=== PATIENT | female | born 1970 | race Hispanic/Latino ===

== ENCOUNTER 2018-03-19 17:57 | Emergency (ER) | payer OTHER ==
[~2018-03-19] VITALS: Ht 162.6 cm; Wt 81.3 kg
[2018-03-19] MEDS ORDERED: ULTRACET1 TABLET PO (22:43)
[2018-03-19 22:58] VITALS: BP 117/81
== END 2018-03-19 22:59 | disposition home or self-care (01) ==
LOC: EME 17:57
PROC: 3E0234Z Introduction of Serum, Toxoid and Vaccine into Muscle, Percutaneous Approach (ICD-10-PCS; principal; 2018-03-19)
DX: S61.210A Laceration without foreign body of right index finger without damage to nail, initial encounter (principal); W26.0XXA Contact with knife, initial encounter; Y99.0 Civilian activity done for income or pay; Z23 Encounter for immunization
CPT/HCPCS: 99281; 99284; S0020